=== PATIENT | male | born 1950 ===

== ENCOUNTER 2025-02-15 07:15 | Inpatient (IN) | payer OTHER ==
[~2025-02-15] VITALS: Ht 185.4 cm; Wt 110.7 kg
[2025-02-15] MEDS ORDERED: CRESTOR40 MG (08:29)
[2025-02-15] MEDS ORDERED: ZESTRIL40 M1 PO (08:29)
[2025-02-15] MEDS ORDERED: VERAPAMIL ER120 MG (08:30)
[2025-02-15 08:35] VITALS: BP 154/80
[2025-02-15 08:44] LABS: BASO % 0.7 % (0.1-1.2); EOS # 0.17 (0.04-0.54); EOS % 2.4 % (0.7-7.0); LYMPH # 2.24 (1.18-3.74); LYMPH % 31.2 % (19.3-53.1); MEAN PLATELET VOLUME 9.70 fl (9.4-12.4); MONO # 0.81 (0.24-0.82); MONO % 11.3 % (4.7-12.5); NEUT # 3.88 (1.56-6.13); NEUT % 54.1 % (34.0-71.1); RED CELL DISTRIBUTION WIDTH 13.9 % (11.6-14.4)
[2025-02-15 08:44] LABS: URINE APPEARANCE Clear; URINE BILIRRUBIN Negative (NEGATIVE); URINE BLOOD Negative; URINE COLOR Yellow; URINE GLUCOSE Negative (NEGATIVE); URINE KETONE Negative (NEGATIVE); URINE LEUKOCYTE Trace; URINE NITRATE Negative; URINE PROTEIN Negative (NEGATIVE); URINE UROBILINOGEN 0.2 E.U./dl
[2025-02-15 08:46] LABS: URINE RBC 16.4 uL (0.0-20.8); URINE WBC 12.1 uL (0.0-23.2)
[2025-02-15 09:03] LABS: INR 1.05
[2025-02-15 09:09] LABS: ALT/SGPT 42.0 U/L (12-78); AST/SGOT 27.0 U/L (15-37); BILIRUBIN TOTAL 0.76 mg/dL (0.3-1.2); BUN CREA RATIO 13.0 (7.0-25.0); CREATININE SERUM 0.98 mg/dL (0.70-1.30); GFR 74.56; GLOBULINA 4.4 G/DL (2.4-3.5); GLUCOSE FASTING 104.0 mg/dL (65-100); OSMOLALITY SERUM 291.0 MOSM/KG (275-295)
[2025-02-15 09:15] LABS: URINE BACTERIA 2.3 uL (0.0-1933); URINE CAST 0.00 uL (0.0-1.40); URINE EPITHELIAL CELLS 1.0 uL (0.0-38.8)
[2025-02-22] MEDS ORDERED: DEXAMETHASONE SODIUM PHOSPHATE 4 MG/ML VIAL ONE (07:08)
[2025-02-22] MEDS ORDERED: ONDANSETRON HCL 2 MG/ML VIAL IV PRN (10:30)
[2025-02-22] MEDS ORDERED: ENALAPRILAT DIHYDRATE 1.25 MG/ML VIAL IV PRN ×2 (10:30→21:11)
[2025-02-22 14:20] VITALS: BP 158/84; O2SAT 95
[2025-02-22 16:00] VITALS: BP 160/92; O2SAT 95
[2025-02-22] MEDS ORDERED: TRAMADOL HCL 50 MG TABLET PO SCH (17:00)
[2025-02-22] MEDS ORDERED: ACETAMINOPHEN 500 MG GEL..CAP PO SCH (17:00)
[2025-02-22] MEDS ORDERED: CYCLOBENZAPRINE HCL 5 MG TABLET PO SCH (17:00)
[2025-02-22] MEDS ORDERED: DIPHENHYDRAMINE HCL 75 MG,LIDOCAINE HCL 30 ML,MAG HYDROX/ALUMINUM HYD/SIMETH 30 ML PO SCH (17:00)
[2025-02-22] MEDS ORDERED: PANTOPRAZOLE SODIUM 40 MG/VIAL VIAL IV PUSH SCH (21:00)
[2025-02-22] MEDS ORDERED: Calcium Carbonate 1 TAB TABLET PO SCH (21:00)
[2025-02-22] MEDS ORDERED: ENALAPRILAT DIHYDRATE 1.25 MG/ML VIAL IV STA (21:11)
[2025-02-22] MEDS ORDERED: hydrALAZINE HCL 20 MG VIAL ONE (22:04)
[2025-02-22] MEDS ORDERED: hydrALAZINE HCL 20 MG VIAL IV STA (22:14)
[2025-02-23] VITALS: BP 171/95; O2SAT 95
[2025-02-23 05:43] VITALS: BP 166/88
[2025-02-23 08:00] VITALS: BP 177/79; O2SAT 95
[2025-02-23] MEDS ORDERED: LISINOPRIL 40 MG TABLET PO STA (11:33)
[2025-02-23 13:42] VITALS: BP 172/90
[2025-02-23] MEDS ORDERED: AMLODIPINE BESYLATE 10 MG TABLET PO NR (16:00)
[2025-02-23 17:36] VITALS: BP 176/80; O2SAT 95
[2025-02-23] MEDS ORDERED: hydrALAZINE HCL 20 MG VIAL IV PRN (22:15)
[2025-02-24 01:18] VITALS: BP 146/83; O2SAT 96
[2025-02-24 09:00] VITALS: BP 187/74; O2SAT 94
[2025-02-24] MEDS ORDERED: LOSARTAN POTASSIUM 50 MG TABLET PO SCH ×2 (09:00→17:00)
[2025-02-24] MEDS ORDERED: AMLODIPINE BESYLATE 5 MG TABLET PO SCH (09:00)
[2025-02-24] MEDS ORDERED: LISINOPRIL 40 MG TABLET PO SCH (09:00)
[2025-02-24] MEDS ORDERED: TAMSULOSIN HCL 0.4 MG CAP PO SCH (13:49)
[2025-02-24 16:10] VITALS: BP 157/80; O2SAT 95
[2025-02-25 01:10] VITALS: BP 149/81; O2SAT 96
[2025-02-25 08:00] VITALS: BP 167/93; O2SAT 97
[2025-02-25 09:40] VITALS: BP 160/85
[2025-02-25 13:58] VITALS: BP 156/79
== END 2025-02-25 15:30 | DRG 627 ==
LOC: O/R 02-22 06:00 → SURG 02-22 07:00 → SURH 02-22 13:36
PROVIDERS: ADMIT Surgery; ATTEND Surgery
PROC: 0GTG0ZZ Resection of Left Thyroid Gland Lobe, Open Approach (ICD-10-PCS; principal; 2025-02-22 07:00)
DX: E04.2 Nontoxic multinodular goiter (principal); I10 Essential (primary) hypertension